=== PATIENT | male | born 1945 | race Caucasian/White ===

== ENCOUNTER 2022-04-16 13:00 | Emergency (ER) | payer OTHER, MEDICARE ==
[2022-04-16 13:26] LABS: BASOPHIL 0.4 % (0-2); EOSINOPHIL 0.7 % (0-7); HCT 41.4 % (42.0-52.0); HGB 14.8 g/dl (13.2-18.0); LYMPHOCYTE 17.9 % (15-48); MCH 32.5 pg (25.0-31.0); MCHC 35.7 g/dL (32.0-36.0); MONOCYTE 7.3 % (0-12); MPV 9.7 fL (6.0-9.5); NEUTROPHIL 71.6 % (41-80); NRBC 0; PLT 202 K/uL (150-400); RBC 4.55 M/uL (4.70-6.00); RDW 12.8 % (11.5-14.0); WBC 10.5 K/uL (4.0-10.5)
[2022-04-16 13:53] LABS: ALBUMIN 3.5 g/dL (3.4-5.0); BUN/CREAT RATIO (CALC) 13.3 RATIO; CREATININE 0.98 mg/dL (0.67-1.17); GLOBULIN (CALCULATION) 3.1 g/dL; POTASSIUM 3.8 mmol/L (3.5-5.1); TOTAL PROTEIN 6.6 g/dL (6.4-8.2)
== END 2022-04-16 14:15 | disposition other institution (70) ==
LOC: FER 13:00
PROVIDERS: Emergency Medicine
DX: S00.12XA Contusion of left eyelid and periocular area, initial encounter (principal); S30.0XXA Contusion of lower back and pelvis, initial encounter; S50.12XA Contusion of left forearm, initial encounter; S60.512A Abrasion of left hand, initial encounter; I95.9 Hypotension, unspecified; R09.02 Hypoxemia; R07.9 Chest pain, unspecified; V47.5XXA Car driver injured in collision with fixed or stationary object in traffic accident, initial encounter
CPT/HCPCS: 36415; 71045; 72170; 73552; 80053; 84484; 85025; 93005; J7030